=== PATIENT | female | born 1945 | race Caucasian/White ===

== ENCOUNTER 2016-12-14 02:15 | Emergency (ER) | payer MEDICARE, OTHER ==
[~2016-12-14 02:15] MED LIST: ADVAIR 1001 DISK W/D INH; ADVAIR 25028 BLISTE1 INH; ADVAIR 25028 BLISTER INH; ALDACTONE25 MG PO; ARIMIDEX1 MG PO; ASCRIPTIN 325325 MG; ASMANEX0; ASMANEX0.135 G1 IH; ASPIRIN325 M1 PO; ASPIRIN325 M3 PO; AUGMENTIN; BACTRIM DS TABL1 TAB PO; BALANCED B-501 CAP PO; CALCIUM 600 +1 EAC5 PO; CALTRATE-600/VI1 TAB; CIPRO250 MG PO; CLINDAMYCIN HC300 M2 PO; COLACE100 MG PO; COZAAR100 MG; CRANBERRY CONC1 EAC1 PO; CRANBERRY CONC300 MG; CRANBERRY CONC300 MG PO; DITROPAN5 MG; ENABLEX; EQL FISH OIL 1,1 CA1 PO; EQL FISH OIL 11 EAC2 PO; FISH OIL 1,0001 CA1 PO; FLONASE16 G1; FLUTICASONE PRO16 GM; FOSAMAX70 MG PO; GELNIQUE; GLUCOPHAGE500 M3 PO; GLUCOPHAGE500 MG/TA1 PO; GLUCOPHAGE500 MG/TA2 PO; GLUCOSAMINE & C1 CAP PO; GLUCOSAMINE &1 EAC2 PO; GLUCOSAMINE/CHO1 T; GLUCOSAMINE500 MG; LEXAPRO10 MG; LEXAPRO20 M1 PO; LEXAPRO20 M2 PO; LEXAPRO20 MG; LEXAPRO20 MG PO; LOSARTAN-HCTZ1 EAC2 PO; LOSARTAN-HCTZ1 EAC6 PO; LOVENOX40 MG/0.4 SQ; MAGNESIUM PO; MAGNESIUM400 M1 PO; METFORMIN HCL500 M2 PO; MILK OF MA400 MG/5 M PO; MULTI VIT W/CAL1 TAB; MULTI VITAMIN1 EAC2 PO; MULTI VITAMIN1 EACH PO; MULTIVITAMIN1 TAB PO; MYRBETRIQ50 M1 PO; NORCO 5/325 TAB1 TAB PO; NORCO 5/3251 TA1 PO; NYSTOP15 GM TP; OXYCODONE/APAP PO; POTASSIUM99 M1 PO; POTASSIUM99 M4 PO; POTASSIUM99 MG; SENOKOT-S TABLE1 TAB PO; SIMVASTATIN20 M1 PO; SIMVASTATIN20 MG PO; SPIRONOLACTONE25 M1 PO; SPIRONOLACTONE25 M2 PO; SYMBICORT 80-41 PUFF INH; ULTRAM50 MG PO; VENTOLIN HFA18 G2 IH; VENTOLIN HFA18 GM IH; VESICARE5 MG PO; VITAMIN B COMP1 EAC1 PO; VITAMIN B COMPL1 CAP PO; VITAMIN D1000 UNI1 PO; VITAMIN D1000 UNI2 PO; VITAMIN D1000 UNIT PO; VITAMIN D400 UNI1 PO; VITAMIN K100 MCG PO; VOLTAREN GEL 1100 G1 TOP; XARELTO10 MG PO
[2016-12-14] MEDS ORDERED: ACTOS15 M1 PO (02:35)
[2016-12-14] MEDS ORDERED: FLONASE ALLERG9.9 ML (02:36)
[2016-12-14 02:54] LABS: BASO % 0.3 % (0-2); EOS % 2.6 % (0-7); EOSINOPHIL ABSOLUTE COUNT 0.3 tho/cmm (0.0-0.7); HCT-HEMATOCRIT 39.8 % (34.0-49.0); HGB-HEMOGLOBIN 13.4 gm/dl (12.0-15.5); IMMATURE GRANULOCYTES ABSOLUTE 0.03 tho/cmm (0-0.03); IMMATURE GRANULOCYTES PERCENT 0.3 % (0-0.3); LYMPH % 20.5 % (20-45); LYMPH ABSOLUTE COUNT 2.4 tho/cmm (0.8-4.5); MCH (MEAN CORPUSCULAR HGB) 32.6 pg (28.0-32.0); MCHC MEAN CORPUSCULAR HGB CONC 33.7 % (32.0-36.0); MCV (MEAN CELL VOLUME) 96.8 fl (82.0-96.0); MEAN PLATELET VOLUME 9.4 cmc (9.4-12.4); MONO % 6.5 % (0-12); MONOCYTE ABSOLUTE COUNT 0.8 tho/cmm (0.0-1.2); NEUTROPHIL ABSOLUTE COUNT 8.1 tho/cmm (1.6-8.0); NEUTROPHIL-AUTOMATED 8.1 tho/cmm (1.6-8.0); NEUTROPHILS % 69.8 % (40-80); PLATELET COUNT 291 tho/cmm (150-450); RED BLOOD COUNT 4.11 mil/cmm (4.00-5.20); RED CELL DISTRIBUTION WIDTH 13.4 % (12.4-16.4); WHITE BLOOD COUNT 11.6 tho/cmm (4.0-10.0)
[2016-12-14 03:03] LABS: URINE BILIRUBIN NEGATIVE (NEG); URINE BLOOD LARGE (NEG); URINE GLUCOSE (UA) NEGATIVE (NEG); URINE KETONE NEGATIVE (NEG); URINE LEUKOCYTE ESTERASE POSITIVE (NEG); URINE NITRITE NEGATIVE (NEG); URINE PROTEIN MODERATE (NEG); URINE SPECIFIC GRAVITY 1.025 (1.003-1.030)
[2016-12-14 03:04] LABS: URINE APPEARANCE CLOUDY; URINE COLOR STRAW
[2016-12-14 03:10] LABS: URINE BACTERIA 1+; URINE WBC FULL FIELD /[HPF] (0-5)
[2016-12-14 03:10] LABS: ALB/GLOB RATIO 0.8 (0.8-2.0); ALBUMIN 3.5 g/dl (3.5-5.0); ALKALINE PHOSPHATASE 61 U/L (33-138); ALT/SGPT 29 U/L (12-78); ANION GAP 15 mmol/L (0-20); AST/SGOT 24 U/L (10-40); BILIRUBIN,TOTAL 0.2 mg/dl (0-1.5); BLOOD UREA NITROGEN 29 mg/dl (6-24); CALCIUM 9.8 mg/dl (8.5-10.5); CARBON DIOXIDE-VENOUS 24 mmol/L (22-32); CHLORIDE 104 mmol/l (96-110); CREATININE 1.22 mg/dl (0.50-1.10); GLUCOSE 175 mg/dL (70-110); LIPASE 575 U/L (73-393); POTASSIUM 4.3 mmol/L (3.7-5.1); SODIUM 139 mmol/L (135-145); eGFR VALUE FOR BLACK 51 mL/Min
[2016-12-14 03:11] LABS: URINE RBC 40-60 /[HPF] (0-5)
[2016-12-14] MEDS ORDERED: KEFLEX500 M4 PO (04:29)
== END 2016-12-14 04:43 ==
LOC: EDMED 02:15
PROVIDERS: Emergency Medicine
DX: N12 Tubulo-interstitial nephritis, not specified as acute or chronic (principal); J45.909 Unspecified asthma, uncomplicated; I10 Essential (primary) hypertension; E11.9 Type 2 diabetes mellitus without complications; Z87.442 Personal history of urinary calculi; Z85.3 Personal history of malignant neoplasm of breast; Z98.890 Other specified postprocedural states; Z79.51 Long term (current) use of inhaled steroids; Z79.82 Long term (current) use of aspirin; Z79.899 Other long term (current) drug therapy
CPT/HCPCS: J0696; J1170; J2405; J7030

== ENCOUNTER 2016-12-18 20:24 | Emergency (ER) | payer MEDICARE, OTHER ==
[~2016-12-18 20:24] MED LIST changes: +ACTOS15 M1 PO; +FLONASE ALLERG9.9 ML; +KEFLEX500 M4 PO
[2016-12-18 22:39] LABS: BASO % 0.3 % (0-2); EOS % 2.7 % (0-7); EOSINOPHIL ABSOLUTE COUNT 0.3 tho/cmm (0.0-0.7); HCT-HEMATOCRIT 40.9 % (34.0-49.0); HGB-HEMOGLOBIN 13.6 gm/dl (12.0-15.5); IMMATURE GRANULOCYTES ABSOLUTE 0.04 tho/cmm (0-0.03); IMMATURE GRANULOCYTES PERCENT 0.4 % (0-0.3); LYMPH % 18.9 % (20-45); MCH (MEAN CORPUSCULAR HGB) 32.2 pg (28.0-32.0); MCHC MEAN CORPUSCULAR HGB CONC 33.3 % (32.0-36.0); MCV (MEAN CELL VOLUME) 96.9 fl (82.0-96.0); MEAN PLATELET VOLUME 9.3 cmc (9.4-12.4); MONO % 7.8 % (0-12); MONOCYTE ABSOLUTE COUNT 0.8 tho/cmm (0.0-1.2); NEUTROPHIL ABSOLUTE COUNT 7.5 tho/cmm (1.6-8.0); NEUTROPHIL-AUTOMATED 7.5 tho/cmm (1.6-8.0); NEUTROPHILS % 69.9 % (40-80); PLATELET COUNT 302 tho/cmm (150-450); RED BLOOD COUNT 4.22 mil/cmm (4.00-5.20); RED CELL DISTRIBUTION WIDTH 13.6 % (12.4-16.4); WHITE BLOOD COUNT 10.8 tho/cmm (4.0-10.0)
[2016-12-18 22:47] LABS: ANION GAP 13 mmol/L (0-20); BLOOD UREA NITROGEN 27 mg/dl (6-24); CALCIUM 9.9 mg/dl (8.5-10.5); CARBON DIOXIDE-VENOUS 26 mmol/L (22-32); CHLORIDE 102 mmol/l (96-110); CREATININE 1.18 mg/dl (0.50-1.10); GLUCOSE 148 mg/dL (70-110); POTASSIUM 4.2 mmol/L (3.7-5.1); SODIUM 137 mmol/L (135-145); eGFR VALUE FOR BLACK 53 mL/Min
[2016-12-18 23:29] LABS: URINE BILIRUBIN NEGATIVE (NEG); URINE BLOOD LARGE (NEG); URINE GLUCOSE (UA) NEGATIVE (NEG); URINE KETONE NEGATIVE (NEG); URINE LEUKOCYTE ESTERASE POSITIVE (NEG); URINE NITRITE NEGATIVE (NEG); URINE PROTEIN SMALL (NEG)
[2016-12-18 23:31] LABS: URINE APPEARANCE CLOUDY; URINE COLOR YELLOW
[2016-12-18] MEDS ORDERED: NORCO 5/3251 TAB PO (23:37)
== END 2016-12-19 00:30 ==
LOC: EDMED 20:24
PROVIDERS: Emergency Medicine
DX: M54.9 Dorsalgia, unspecified (principal); R11.0 Nausea; E11.9 Type 2 diabetes mellitus without complications; I10 Essential (primary) hypertension; Z79.899 Other long term (current) drug therapy; Z98.890 Other specified postprocedural states

== ENCOUNTER 2017-02-04 19:02 | Emergency (ER) | payer MEDICARE, OTHER ==
[~2017-02-04 19:02] MED LIST changes: +NORCO 5/3251 TAB PO
[2017-02-04] MEDS ORDERED: GENTAK5 M1 OP (20:14)
== END 2017-02-04 20:20 ==
LOC: EDMED 19:02
DX: H10.212 Acute toxic conjunctivitis, left eye (principal); E11.9 Type 2 diabetes mellitus without complications; E78.00 Pure hypercholesterolemia, unspecified